=== PATIENT | female | born 1985 | race Caucasian/White ===

== ENCOUNTER 2016-10-09 13:16 | Emergency (ER) | payer OTHER ==
[~2016-10-09] VITALS: Ht 154.9 cm; Wt 68.0 kg
[2016-10-09] MEDS ORDERED: NS 1,000 ML IV ONE (13:45)
[2016-10-09] MEDS ORDERED: ONDANSETRON 4MG/2ML VIAL (J2405) IV ONE (13:45)
[2016-10-09] MEDS ORDERED: KETOROLAC 30 MG/ML VIAL (J1885) IV ONE (13:45)
--- NOTE | 2016-10-09 14:38 | REP ---
Clinical: Left-sided pelvic pain . Technique: Transabdominal pelvic ultrasound followed by transvaginal examination for better evaluation of the endometrium and adnexa with color Doppler evaluation of the ovaries. Findings: Bladder is completely collapsed. Normal anteverted uterus measures 7.0 x 2.9 x 3.4 cm . The endometrial complex measures 7.7 mm thickness. No discrete uterine or endometrial abnormalities are appreciated. Bilateral ovaries are normal in appearance and vascularity without evidence for torsion. Right ovary measures 3.2 x 1.9 x 2.3 cm ; R I = 0.64 . Left ovary measures 4.1 x 4.0 x 2.8 cm with physiologic 3.3 cm cyst ; R I = 0.45 . Trace pelvic free fluid . Impression: 3.3 cm physiologic left ovarian cyst. No evidence for torsion. Signed by Sridhar Georges MD 10/09/2016 02:29 P
[2016-10-09 15:05] LABS: BASO % 0.5 % (0.0-1.0); EOS # 0.2 K/mm3 (0.0-0.50); EOS % 2.1 % (0.0-3.0); LARGE UNSTAINED CELL # 0.1 K/mm3 (0.0-0.4); LARGE UNSTAINED CELL % 1.1 % (0.0-4.0); LYMPH # 2.6 K/mm3 (1.5-4.5); MEAN CORPUSCULAR HEMOGLOBIN 28.7 pg (27.0-33.0); MEAN CORPUSCULAR HGB CONC 32.1 g/dl (32.0-36.5); MEAN CORPUSCULAR VOLUME 89.6 fl (80.0-96.0); MONO # 0.5 K/mm3 (0.0-0.8); MONO % 5.1 % (0.0-5.0); NEUTROPHILS # 6.2 K/mm3 (1.8-7.7); NEUTROPHILS % 64.2 % (36.0-66.0); PLATELET COUNT, AUTOMATED 254 k/mm3 (150-450); RED CELL DISTRIBUTION WIDTH 12.5 % (11.5-14.5); WHITE BLOOD COUNT 9.6 K/mm3 (4.0-10.0)
[2016-10-09 15:09] LABS: ALBUMIN/GLOBULIN RATIO 1.18 (1.00-1.93); ALKALINE PHOSPHATASE 190 U/L (45-117); ALT/SGPT 75 U/L (12-78); ANION GAP 6 MEQ/L (8-16); AST/SGOT 32 U/L (15-37); BILIRUBIN,TOTAL 0.5 MG/DL (0.2-1.0); BLOOD UREA NITROGEN 7 MG/DL (7-18); CALCIUM LEVEL 8.8 MG/DL (8.5-10.1); CARBON DIOXIDE LEVEL 29 MEQ/L (21-32); CHLORIDE LEVEL 106 MEQ/L (98-107); CREATININE FOR GFR 0.58 MG/DL (0.55-1.02); GLOMERULAR FILTRATION RATE > 60.0 (>60); GLUCOSE, FASTING 89 MG/DL (70-105); POTASSIUM SERUM 3.7 MEQ/L (3.5-5.1); SODIUM LEVEL 141 MEQ/L (136-145); TOTAL PROTEIN 7.4 GM/DL (6.4-8.2)
[2016-10-09] MEDS ORDERED: ZOFR4TAB3 PO (15:19)
[2016-10-09] MEDS ORDERED: NAPR500T PO (15:19)
[2016-10-09 15:38] VITALS: BP 101/65
== END 2016-10-09 15:40 | disposition home or self-care (01) ==
LOC: M ED 14:56
DX: N83.202 Unspecified ovarian cyst, left side (principal); J30.81 Allergic rhinitis due to animal (cat) (dog) hair and dander
CPT/HCPCS: 76830; 76856; 80053; 81001; 81025; 83690; 85025; 87086; 93976; 96374; 96375; 99283; J1885; J2405